=== PATIENT | female | born 1960 | race Caucasian/White ===

== ENCOUNTER 2018-07-20 13:03 | Emergency (ER) | END 2018-07-20 16:36 | disposition home or self-care (01) ==

== ENCOUNTER → 2019-06-14 | Emergency (ER) | payer MEDICARE, OTHER ==
[~2019-06-14] VITALS: Ht 165.1 cm; Wt 65.9 kg
[~2019-06-14] MED LIST: BACTDS PO; CEPH-443 PO; DEXAMETHASONE 10 MG/ML 1 ML INJ IM ONE; HYDR-3498 PO; HYDR-4011 PO; IBUP-1542 PO; IBUP800T48 PO; KETOROLAC 30 MG INJ IM STA; MED4DP PO; MUPI22OI2 TOP
[2019-06-14 08:03] VITALS: Ht 165.1 cm; Wt 65.9 kg
[2019-06-14 09:34] VITALS: BP 127/76; PULSE 78; RESP 20
--- NOTE | 2019-06-14 09:50 | ERD ---
ER Documentation Chief Complaint Chief Complaint CHRONIC BACK PAIN HPI This is 59-year-old female with history of chronic back pain presents to the ED complaining of exacerbation of her back pain after colliding into a wall yesterday. There is no LOC or head injury. Patient is complaining of sharp right-sided hip pain that radiates down towards her left lower leg. She describes a tingling sensation. She states his pain is very similar to her previous back pains. Denies any saddle anesthesia. No loss of bowel or bladder control. No fevers. She states she took [place] at home earlier today but ran out. She has an appointment with your chest pain coordinator at the end of this month. ROS All systems reviewed and are negative except as per history of present illness. Medications Home Meds Active Scripts Methylprednisolone* (Medrol* DOSE PACK) 4 Mg/Dose-Pack Tab.ds.pk, 4 MG PO . DI RECTED for 6 Days, PACKET Prov:LULA VAIL 07/20/18 Ibuprofen* (Motrin*) 600 Mg Tab, 600 MG PO Q6, #30 TAB Prov:LULA VAIL 07/20/18 Hydrocodone/Acetaminophen (Seward 5-325 Tablet) 1 Each Tablet, 1 TAB PO Q6H PRN for PAIN, #20 TAB Prov:LULA VAIL 07/20/18 Cephalexin* (Keflex*) 500 Mg Capsule, 500 MG PO QID for 7 Days, CAP Prov:TERRA JENSEN MONUMENT STONECUTTER 03/14/16 Mupirocin* (Bactroban*) 2% -22 Gram Oint...g., 1 APPLIC TOP BID for 14 Days, EA Apply inside the nostrils Prov:TERRA JENSEN MONUMENT STONECUTTER 03/14/16 Sulfamethoxazole-Trimethoprim* (Bactrim* DS) 800-160 Mg Tab, 2 TAB PO BID for 7 Days, TAB Prov:TERRA JENSEN MONUMENT STONECUTTER 03/14/16 Ibuprofen* (Motrin*) 800 Mg Tab, 800 MG PO Q6H PRN for PAIN AND OR ELEVATED TEMP, #30 TAB Prov:TERRA JENSEN MONUMENT STONECUTTER 03/14/16 Hydrocodone Bit-Acetaminophen* (Seward*) 5-325 Mg Tab, 1 TAB PO Q6 PRN for SEVERE PAIN LEVEL 7-10, #7 TAB Prov:TERRA JENSEN IRENA 03/14/16 Cephalexin* (Keflex*) 500 Mg Capsule, 500 MG PO QID for 5 Days, CAP Prov:CHICA CROCKER MONUMENT STONECUTTER 12/26/15 Sulfamethoxazole-Trimethoprim* (Bactrim* DS) 800-160 Mg Tab, 1 TAB PO BID for 5 Days, TAB Prov:CHICA CROCKER MONUMENT STONECUTTER 12/26/15 Allergies Allergies: Coded Allergies: No Known Allergy (Unverified , 06/14/19) PMhx/Soc History of Surgery: Yes (HYSTERRECTOMY) Anesthesia Reaction: No Hx Neurological Disorder: No Hx Respiratory Disorders: No Hx Cardiac Disorders: No Hx Psychiatric Problems: No Hx Miscellaneous Medical Probl: No Hx Alcohol Use: No Hx Substance Use: No Hx Tobacco Use: No Smoking Status: Never smoker Physical Exam Vitals Vital Signs Date Temp Pulse Resp B/P (MAP) Pulse Ox O2 O2 Flow FiO2 Time Delivery Rate 06/14/19 78 20 127/76 100 09:34 (93) 06/14/19 97.6 96 17 139/81 98 08:03 (100) Physical Exam Const: No acute distress Head: Atraumatic Eyes: Normal Conjunctiva ENT: Normal External Ears, Nose and Mouth. Neck: Full range of motion. No meningismus. Abd: Soft, non tender, non distended. Normal bowel sounds Skin: No petechiae or rashes Back: + Moderate tenderness palpation along the L5/S1, positive straight leg raise of the left lower extremity, 4 out of 5 right lower extremity motor strength, 5 out of 5 strength on the left lower extremity, sensation grossly intact. Ext: No cyanosis, or edema Neur: Awake and alert Psych: Normal Mood and Affect Results 24 hrs Current Medications Medications Dose Sig/Constance Start Time Status Last (Trade) Ordered Route PRN Stop Time Admin Dose Reason Admin Ketorolac 30 mg ONCE STAT 06/14/19 DC 06/14/19 Tromethamine IM 08:51 09:01 (Toradol) 06/14/19 08:53 10 mg ONCE ONCE 06/14/19 DC 06/14/19 Dexamethasone IM 09:00 09:02 (Decadron) 06/14/19 09:01 Procedures/MDM ED COURSE: The patient was given IM Decadron, Toradol The medication was well tolerated and the patient had market improvement in symptoms. The patient remained stable throughout ED course. MEDICAL DECISION MAKIN-year-old female presents with exacerbation of her chronic back pain after accidentally hitting a wall. Records reviewed from 06/2018 reveals that patient has spondylosis and degenerative changes of her lumbar spine, likely the cause of her chronic pain. There are no focal neurological deficits on physical exam. Advanced imaging was deferred as there are no new symptoms or significant trauma. I have low suspicion for epidural abscess, cauda equina, cord compression, spinal tumor/mass or compression fracture. She was treated with steroids and Toradol here w/ improvement of her pain. Patient has an appointment with her chest pain coordinator in 2 weeks, therefore pain medications were deferred. Patient has ibuprofen at home that she can take in the interim. Strict return precautions were discussed. PRESCRIPTIONS: None, patient has naproxen at home security professional FOLLOW UP RECOMMENDED: consumer loan specialist as scheduled Departure Diagnosis: Primary Impression: Chronic back pain Back pain location: low back pain Back pain laterality: right Sciatica presence: with sciatica Sciatica laterality: sciatica of right side Qualified Codes: M54.41 - Lumbago with sciatica, right side; G89.29 - Other chronic pain Condition: Stable Patient Instructions: Back Pain W/ Sciatica Referrals: COMMUNITY CLINICS YOU HAVE RECEIVED A MEDICAL SCREENING EXAM AND THE RESULTS INDICATE THAT YOU DO NOT HAVE A CONDITION THAT REQUIRES URGENT TREATMENT IN THE EMERGENCY DEPARTMENT. FURTHER EVALUATION AND TREATMENT OF YOUR CONDITION CAN WAIT UNTIL YOU ARE SEEN IN YOUR DOCTORS OFFICE WITHIN THE NEXT 1-2 DAYS. IT IS YOUR RESPONSIBILITY TO MAKE AN APPOINTMENT FOR FOLOW-UP CARE. IF YOU HAVE A PRIMARY DOCTOR --you should call your primary doctor and schedule an appointment IF YOU DO NOT HAVE A PRIMARY DOCTOR YOU CAN CALL OUR PHYSICIAN REFERRAL HOTLINE AT IF YOU CAN NOT AFFORD TO SEE A PHYSICIAN YOU CAN CHOSE FROM THE FOLLOWING [facility] [address] [facility] [address] [facility] [address] [facility] [address] [facility] [address] [facility] [address] [facility]. [facility] YOU HAVE RECEIVED A MEDICAL SCREENING EXAM AND THE RESULTS INDICATE THAT YOU DO NOT HAVE A CONDITION THAT REQUIRES URGENT TREATMENT IN THE EMERGENCY DEPARTMENT. FURTHER EVALUATION AND TREATMENT OF YOUR CONDITION CAN WAIT UNTIL YOU ARE SEEN IN YOUR DOCTORS OFFICE WITHIN THE NEXT 1-2 DAYS. IT IS YOUR RESPONSIBILITY TO MAKE AN APPOINTMENT FOR FOLOW-UP CARE. IF YOU HAVE A PRIMARY DOCTOR --you should call your primary doctor and schedule and appointment IF YOU DO NOT HAVE A PRIMARY DOCTOR YOU CAN CALL OUR PHYSICIAN REFERRAL HOTLINE AT . IF YOU CAN NOT AFFORD TO SEE A PHYSICIAN YOU CAN CHOSE FROM THE FOLLOWING [facility] INSTITUTIONS: [facility] [id number] [place] [address] [facility] [address] [place], [place] [id number] [place] [address] [address] [place] [address] Additional Instructions: Keep your appointment with your chest pain coordinator. He can take the ibuprofen for any continued pain. Return here follow-up sooner for any numbness in your bilateral feet, difficulty urinating, numbness or any other concerns. KEIRA DEAN PA-C Jun 14, 2019 09:50
== END | disposition home or self-care (01) ==
LOC: FTE 08:00
DX: M54.41 Lumbago with sciatica, right side (principal)
CPT/HCPCS: J1100; J1885; 96372